=== PATIENT | female | born 2000 | race Hispanic/Latino ===

== ENCOUNTER 2020-11-18 16:07 | Emergency (ER) | payer SELFPAY ==
[~2020-11-18] VITALS: Ht 149.9 cm; Wt 59.0 kg
[2020-11-18 16:09] VITALS: BP 142/92
[2020-11-18 16:19] VITALS: BP 124/62
[2020-11-18] MEDS ORDERED: CEPH500B PO (16:36)
[2020-11-18] MEDS ORDERED: SULF1TAB42 PO (16:36)
== END 2020-11-18 16:44 | disposition home or self-care (01) ==
LOC: EDH 16:07
DX: L03.115 Cellulitis of right lower limb (principal)